=== PATIENT | male | born 1945 | race Caucasian/White ===

== ENCOUNTER → 2017-07-19 | Outpatient (CLI) | payer MEDICARE, OTHER ==
--- NOTE | 2017-07-19 17:38 | PFTRPT ---
Tech: Erich HENLEY RRT Age: 71 Sex: Male Race: Height: 66.00 Inches Weight: 180.00 Lbs BSA: 1.91 Diagnosis: Z79.899 PULMONARY FUNCTION REPORT ORDERING PROVIDER: Lewis Peck MD DATE OF SERVICE: 07/19/17 SPIROMETRY: Pre and post bronchodilator study of excellent technical quality. Marked difficulty with the required maneuvers is identified. The forced vital capacity is normal. The FEV1 is in proportion. The obstructive index is, therefore, normal. FLOW VOLUME LOOP: The expiratory limb of the flow volume loop suggests marked difficulty with the maneuver. LUNG VOLUMES: The total lung capacity is normal. The residual volume is in proportion. DIFFUSION CAPACITY: The diffusion capacity is minimally reduced, but is appropriate for alveolar volume. HEMOGLOBIN: No hemoglobin is available for correction. AIRWAY MECHANICS: Airways resistance and conductance are normal. IMPRESSION: Minimal diffusion capacity impairment; otherwise, normal study despite the above limitations. MTDD
== END ==
LOC: M CARPUL 12:47
PROVIDERS: ATTEND Internal Medicine Cardiovascular Disease
DX: Z51.81 Encounter for therapeutic drug level monitoring (principal); Z79.899 Other long term (current) drug therapy

== ENCOUNTER → 2017-10-10 | Outpatient (REF) | payer MEDICARE, OTHER ==
[2017-10-10 17:01] LABS: FREE T4 0.75 NG/DL (0.76-1.46)
== END ==
LOC: M LABDRAW1 11:18
PROVIDERS: ATTEND Internal Medicine Endocrinology, Diabetes & Metabolism
DX: E04.2 Nontoxic multinodular goiter (principal)

== ENCOUNTER → 2017-11-27 | Outpatient (CLI) | payer OTHER | LOC: M RAD 13:07 | DX: Z01.818 Encounter for other preprocedural examination (principal); N28.1 Cyst of kidney, acquired | CPT/HCPCS: 76775 ==

== ENCOUNTER → 2017-12-11 | Outpatient (REF) | payer MEDICARE, OTHER ==
[2017-12-11 19:43] LABS: FREE T4 1.52 NG/DL (0.76-1.46); THYROID STIMULATING HORMONE 0.013 uIU/ML (0.358-3.740)
== END ==
LOC: M LAB REF 18:23
DX: E04.2 Nontoxic multinodular goiter (principal)
CPT/HCPCS: 84443

== ENCOUNTER → 2018-01-25 | Outpatient (CLI) | payer MEDICARE, OTHER | LOC: M RAD 08:28 | DX: R91.8 Other nonspecific abnormal finding of lung field (principal) | CPT/HCPCS: 71250 ==

== ENCOUNTER 2018-02-14 10:59 | Day surgery (SDC) | payer MEDICARE, OTHER ==
[2018-02-14] MEDS: LR 1,000 ML IV (11:49)
[2018-02-14] MEDS ORDERED: fentaNYL 100 MCG/2 ML INJECTION (J3010) As Ordered (12:35)
[2018-02-14] MEDS ORDERED: MIDAZOLAM INJ 2 MG/2 ML VIAL (J2250) As Ordered (12:35)
[2018-02-14] MEDS ORDERED: dexameTHASONE 4 MG/ML 1ML VIAL (J1100) As Ordered (12:40)
[2018-02-14] MEDS ORDERED: LIDOCAINE 2% INJ 100 MG/5 ML SDV (FOR ANES.) As Ordered (12:42)
[2018-02-14] MEDS ORDERED: ROCURONIUM BROMIDE 50 MG/5 ML VIAL As Ordered (12:42)
[2018-02-14] MEDS: THROMBIN SOLN 5,000 UNITS VIAL As Ordered (13:08)
[2018-02-14] MEDS: CETACAINE SPRAY 5GM As Ordered (13:39)
[2018-02-14] MEDS: EPINEPHrine 1MG/10ML SYRINGE 1.5IN As Ordered (13:39)
[2018-02-14] MEDS ORDERED: ePHEDrine SULFATE 25 MG/5 ML(5MG/ML) SYRINGE As Ordered (15:04)
[2018-02-14] MEDS ORDERED: PHENYLephrine HCL 500 MCG/5 ML (100MCG/ML) SYRINGE (J2370) As Ordered (15:04)
[2018-02-14] MEDS ORDERED: NORCO, ANEXSIA 5/325MG TABLET (HYDROcodone/ACETAMINOPHEN) PO (15:30)
[2018-02-14] MEDS ORDERED: METOCLOPRAMIDE INJ 10MG/2ML VIAL (J2765) IV (15:30)
[2018-02-14] MEDS ORDERED: LR 1,000 ML IV (15:30)
[2018-02-14] MEDS ORDERED: fentaNYL 100 MCG/2 ML INJECTION (J3010) IV (15:30)
[2018-02-14] MEDS ORDERED: ONDANSETRON 4MG/2ML VIAL (J2405) IV (15:30)
[2018-02-14] MEDS ORDERED: LEVALBUTEROL 1.25 MG/0.5 ML CONCENTRATE NEB As Ordered (16:09)
[2018-02-14] MEDS ORDERED: ALBUTEROL SULFATE 2.5 MG/0.5 ML INH NEB SOLN As Ordered (16:12)
[2018-02-14] MEDS: ALBUTEROL SULFATE 2.5 MG/0.5 ML INH NEB SOLN INH (16:17)
== END 2018-02-14 17:52 | disposition home or self-care (01) ==
LOC: M SDC 10:59
DX: R91.1 Solitary pulmonary nodule (principal); I12.9 Hypertensive chronic kidney disease with stage 1 through stage 4 chronic kidney disease, or unspecified chronic kidney disease; I48.91 Unspecified atrial fibrillation; E78.5 Hyperlipidemia, unspecified; K21.9 Gastro-esophageal reflux disease without esophagitis; N18.4 Chronic kidney disease, stage 4 (severe); M10.9 Gout, unspecified; E03.9 Hypothyroidism, unspecified; Z79.02 Long term (current) use of antithrombotics/antiplatelets; Z79.899 Other long term (current) drug therapy
CPT/HCPCS: 31628

== ENCOUNTER → 2018-02-23 | Outpatient (REF) | payer MEDICARE, OTHER ==
[2018-02-23 12:24] LABS: FREE T4 1.72 NG/DL (0.76-1.46)
[2018-02-23 12:24] LABS: THYROID STIMULATING HORMONE 0.007 uIU/ML (0.358-3.740)
== END ==
LOC: M LABDRAW1 10:52
DX: Z01.812 Encounter for preprocedural laboratory examination (principal); E03.9 Hypothyroidism, unspecified; Z79.01 Long term (current) use of anticoagulants
CPT/HCPCS: 84443

== ENCOUNTER → 2018-02-23 | Outpatient (REF) | payer MEDICARE, OTHER ==
[2018-02-23 11:47] LABS: PLATELET COUNT, AUTOMATED 236 10^3/uL (150-450)
[2018-02-23 12:07] LABS: INR 1.23; PROTHROMBIN TIME 15.8 SECONDS (12.4-14.5)
== END ==
LOC: M LABDRAW1 10:53
DX: Z01.812 Encounter for preprocedural laboratory examination (principal); Z79.01 Long term (current) use of anticoagulants

== ENCOUNTER 2018-02-28 07:59 | Inpatient (IN) | payer MEDICARE, OTHER ==
[2018-02-28] MEDS ORDERED: LIDOCAINE 1% MDV 20ML VIAL As Ordered ×3 (08:38→12:50)
[2018-02-28] MEDS: HEPARIN SOD (PORCINE) 5000 UNITS/ML VIAL SC ×2 (09:00→21:00)
[2018-02-28] MEDS: DOCUSATE SODIUM 100 MG CAP PO ×2 (09:00→21:00)
[2018-02-28] MEDS: POTASSIUM CHLORIDE 10 MEQ SR TABLET PO ×2 (09:00→21:03)
[2018-02-28] MEDS ORDERED: MIDAZOLAM INJ 2 MG/2 ML VIAL (J2250) As Ordered ×3 (10:55→11:06)
[2018-02-28] MEDS ORDERED: NORCO, ANEXSIA 5/325MG TABLET (HYDROcodone/ACETAMINOPHEN) PO (11:30)
[2018-02-28] MEDS: KCL 20MEQ IN D5/NS 1000ML 1,000 ML IV (11:30)
[2018-02-28] MEDS ORDERED: LEVALBUTEROL 1.25 MG/0.5 ML CONCENTRATE NEB NEB (11:30)
[2018-02-28] MEDS ORDERED: ACETAMINOPHEN TAB 650MG DOSE (2X325MG) PO (11:30)
[2018-02-28] MEDS ORDERED: PERCOCET 5MG/325MG TAB PO ×2 (11:30)
[2018-02-28] MEDS ORDERED: ONDANSETRON 4MG/2ML VIAL (J2405) IV (11:30)
[2018-02-28] MEDS ORDERED: BISACODYL 10 MG SUPP PR (11:30)
[2018-02-28] MEDS: LEVALBUTEROL 1.25 MG/0.5 ML CONCENTRATE NEB NEB ×2 (14:00→20:04)
[2018-02-28] MEDS: ALLOPURINOL 100 MG TAB PO (16:31)
[2018-02-28] MEDS: CALCITRIOL 0.25 MCG CAP (S0169) PO (16:31)
[2018-02-28] MEDS: PANTOPRAZOLE 40MG TAB (PROTONIX) PO (16:32)
[2018-02-28] MEDS: MOM 30ML SUSPENSION UDC PO (16:32)
[2018-02-28] MEDS: diltiaZEM **CD** 180 MG CAP PO (16:34)
[2018-02-28 16:45] LABS: BASO # 0.1 10^3/uL (0.0-0.2); BASO % 0.5 % (0.0-1.0); EOS # 0.3 10^3/uL (0.0-0.50); EOS % 1.9 % (0.0-3.0); HEMATOCRIT 44.2 % (42.0-52.0); HEMOGLOBIN 15.1 g/dl (13.5-17.5); IMMATURE GRANULOCYTE % 0.3 % (0-3.0); LYMPH # 1.8 10^3/uL (1.5-4.5); LYMPH % 12.1 % (24.0-44.0); MEAN CORPUSCULAR HEMOGLOBIN 31.4 pg (27.0-33.0); MEAN CORPUSCULAR HGB CONC 34.2 g/dl (32.0-36.5); MEAN CORPUSCULAR VOLUME 91.9 fl (80.0-96.0); MONO # 1.1 10^3/uL (0.0-0.8); MONO % 7.5 % (0.0-5.0); NEUTROPHILS # 11.2 10^3/uL (1.8-7.7); NEUTROPHILS % 77.7 % (36.0-66.0); PLATELET COUNT, AUTOMATED 202 10^3/uL (150-450); RED BLOOD COUNT 4.81 10^6/uL (4.30-6.10); RED CELL DISTRIBUTION WIDTH 14.4 % (11.5-14.5); WHITE BLOOD COUNT 14.5 10^3/uL (4.0-10.0)
[2018-02-28 17:10] LABS: ANION GAP 6 MEQ/L (8-16); BLOOD UREA NITROGEN 47 MG/DL (7-18); CALCIUM LEVEL 8.5 MG/DL (8.8-10.2); CARBON DIOXIDE LEVEL 26 MEQ/L (21-32); CHLORIDE LEVEL 113 MEQ/L (98-107); CREATININE FOR GFR 2.87 MG/DL (0.70-1.30); GLOMERULAR FILTRATION RATE 23.2 (>42); GLUCOSE, FASTING 122 MG/DL (70-100); POTASSIUM SERUM 4.7 MEQ/L (3.5-5.1); SODIUM LEVEL 145 MEQ/L (136-145)
[2018-02-28] MEDS: SIMVASTATIN 20 MG TAB PO (21:02)
[2018-02-28] MEDS: FUROSEMIDE 40 MG TAB PO (21:02)
[2018-03-01] MEDS: LEVALBUTEROL 1.25 MG/0.5 ML CONCENTRATE NEB NEB ×3 (01:05→13:25)
[2018-03-01 04:29] LABS: BASO # 0.1 10^3/uL (0.0-0.2); BASO % 0.5 % (0.0-1.0); EOS # 0.4 10^3/uL (0.0-0.50); EOS % 4.2 % (0.0-3.0); HEMATOCRIT 40.9 % (42.0-52.0); HEMOGLOBIN 13.9 g/dl (13.5-17.5); IMMATURE GRANULOCYTE % 0.4 % (0-3.0); LYMPH # 1.9 10^3/uL (1.5-4.5); LYMPH % 18.2 % (24.0-44.0); MEAN CORPUSCULAR HEMOGLOBIN 31.2 pg (27.0-33.0); MEAN CORPUSCULAR VOLUME 91.7 fl (80.0-96.0); MONO # 1.1 10^3/uL (0.0-0.8); MONO % 10.6 % (0.0-5.0); NEUTROPHILS % 66.1 % (36.0-66.0); PLATELET COUNT, AUTOMATED 183 10^3/uL (150-450); RED BLOOD COUNT 4.46 10^6/uL (4.30-6.10); RED CELL DISTRIBUTION WIDTH 14.2 % (11.5-14.5); WHITE BLOOD COUNT 10.6 10^3/uL (4.0-10.0)
[2018-03-01 04:50] LABS: ANION GAP 6 MEQ/L (8-16); BLOOD UREA NITROGEN 47 MG/DL (7-18); CALCIUM LEVEL 8.3 MG/DL (8.8-10.2); CARBON DIOXIDE LEVEL 26 MEQ/L (21-32); CHLORIDE LEVEL 111 MEQ/L (98-107); CREATININE FOR GFR 2.88 MG/DL (0.70-1.30); GLOMERULAR FILTRATION RATE 23.1 (>42); GLUCOSE, FASTING 102 MG/DL (70-100); POTASSIUM SERUM 4.5 MEQ/L (3.5-5.1); SODIUM LEVEL 143 MEQ/L (136-145)
[2018-03-01] MEDS: LEVOTHYROXINE 112MCG TABLET (0.112MG) PO (06:32)
[2018-03-01] MEDS: DOCUSATE SODIUM 100 MG CAP PO (09:00)
[2018-03-01] MEDS: HEPARIN SOD (PORCINE) 5000 UNITS/ML VIAL SC (09:00)
[2018-03-01] MEDS: MOM 30ML SUSPENSION UDC PO (09:00)
[2018-03-01] MEDS: CALCITRIOL 0.25 MCG CAP (S0169) PO (09:49)
[2018-03-01] MEDS: diltiaZEM **CD** 180 MG CAP PO (09:50)
[2018-03-01] MEDS: ALLOPURINOL 100 MG TAB PO (09:50)
[2018-03-01] MEDS: POTASSIUM CHLORIDE 10 MEQ SR TABLET PO (09:50)
[2018-03-01] MEDS: PANTOPRAZOLE 40MG TAB (PROTONIX) PO (09:50)
== END 2018-03-01 14:22 | disposition home or self-care (01) | DRG 200 ==
LOC: M RADPRO 07:59 → M ICU 12:09
PROC: 0W9B30Z Drainage of Left Pleural Cavity with Drainage Device, Percutaneous Approach (ICD-10-PCS; principal; 2018-02-28)
PROC: 0B9G3ZX Drainage of Left Upper Lung Lobe, Percutaneous Approach, Diagnostic (ICD-10-PCS; 2018-02-28)
DX: J93.9 Pneumothorax, unspecified (principal); N18.4 Chronic kidney disease, stage 4 (severe); C34.12 Malignant neoplasm of upper lobe, left bronchus or lung; I48.91 Unspecified atrial fibrillation; R91.8 Other nonspecific abnormal finding of lung field; E03.9 Hypothyroidism, unspecified; M10.9 Gout, unspecified; I12.9 Hypertensive chronic kidney disease with stage 1 through stage 4 chronic kidney disease, or unspecified chronic kidney disease; E78.5 Hyperlipidemia, unspecified; Z86.718 Personal history of other venous thrombosis and embolism; Z79.01 Long term (current) use of anticoagulants; Z79.899 Other long term (current) drug therapy

== ENCOUNTER → 2018-03-06 | Outpatient (CLI) | payer MEDICARE, OTHER | LOC: M PLARAD 15:18 | DX: C34.12 Malignant neoplasm of upper lobe, left bronchus or lung (principal) | CPT/HCPCS: 78815 ==

== ENCOUNTER → 2018-03-08 | Outpatient (CLI) | payer OTHER | LOC: M SMT 08:14 | DX: R91.8 Other nonspecific abnormal finding of lung field (principal) | CPT/HCPCS: 71046 ==

== ENCOUNTER → 2018-03-09 | Outpatient (CLI) | payer MEDICARE, OTHER ==
[2018-03-09 11:55] LABS: ABG BASE EXCESS -0.1 (-2.0-2.0); ABG DEVICE ROOM AIR; ABG HCO3 23.7 MEQ/L (22.0-26.0); ABG O2 SATURATION 95.6 % (95.0-99.0); ABG PARTIAL PRESSURE CO2 36.1 mmHg (35.0-45.0); ABG PARTIAL PRESSURE O2 78.5 mmHg (75.0-100.0); ABG STANDARD HCO3 24.4 MEQ/L (22.0-26.0); ABG TOTAL CO2 24.8 MEQ/L (23.0-31.0); ABG pH (ARTERIAL) 7.435 UNITS (7.350-7.450)
[2018-03-09 12:37] LABS: HEMOGLOBIN 14.5 g/dl (13.5-17.5); MEAN CORPUSCULAR HEMOGLOBIN 30.9 pg (27.0-33.0); MEAN CORPUSCULAR HGB CONC 33.7 g/dl (32.0-36.5); MEAN CORPUSCULAR VOLUME 91.7 fl (80.0-96.0); PLATELET COUNT, AUTOMATED 216 10^3/uL (150-450); RED BLOOD COUNT 4.69 10^6/uL (4.30-6.10); RED CELL DISTRIBUTION WIDTH 14.1 % (11.5-14.5); WHITE BLOOD COUNT 7.3 10^3/uL (4.0-10.0)
[2018-03-09 12:44] LABS: APPEARANCE, URINE CLEAR (CLEAR); BACTERIA, URINE AUTO NEGATIVE (NEGATIVE); BILIRUBIN, URINE AUTO NEGATIVE (NEGATIVE); BLOOD, URINE BLOOD NEGATIVE (NEGATIVE); COLOR, URINE STRAW (YELLOW); GLUCOSE, URINE (UA) AUTO NEGATIVE (NEGATIVE); KETONE, URINE AUTO NEGATIVE (NEGATIVE); LEUKOCYTE ESTERASE, URINE AUTO NEGATIVE (NEGATIVE); NITRITE, URINE AUTO NEGATIVE (NEGATIVE); PROTEIN, URINE AUTO NEGATIVE (NEGATIVE); RBC, URINE AUTO 3 /HPF (0-3); SPECIFIC GRAVITY URINE AUTO 1.009 (1.002-1.035); SQUAMOUS EPITHELIAL CELL UR AU 0 /HPF (0-6); UROBILINOGEN, URINE AUTO 0.2 mg/dL (0.0-2.0); WBC, URINE AUTO 3 /HPF (0-3)
[2018-03-09 12:49] LABS: INR 1.14; PROTHROMBIN TIME 14.8 SECONDS (12.4-14.5)
[2018-03-09 12:50] LABS: PARTIAL THROMBOPLASTIN TIME 34.1 SECONDS (26.8-37.9)
[2018-03-09 13:28] LABS: ANION GAP 7 MEQ/L (8-16); BLOOD UREA NITROGEN 50 MG/DL (7-18); CALCIUM LEVEL 8.8 MG/DL (8.8-10.2); CARBON DIOXIDE LEVEL 28 MEQ/L (21-32); CHLORIDE LEVEL 107 MEQ/L (98-107); CREATININE FOR GFR 2.65 MG/DL (0.70-1.30); GLOMERULAR FILTRATION RATE 25.5 (>42); GLUCOSE, FASTING 93 MG/DL (70-100); POTASSIUM SERUM 4.6 MEQ/L (3.5-5.1); SODIUM LEVEL 142 MEQ/L (136-145)
== END ==
LOC: M ADMPAT 10:33
DX: C34.92 Malignant neoplasm of unspecified part of left bronchus or lung (principal)
CPT/HCPCS: 82803

== ENCOUNTER 2018-03-14 08:28 | Inpatient (IN) | payer MEDICARE, OTHER ==
[~2018-03-14 08:28] MED LIST: LIDOCAINE 2% INJ 100 MG/5 ML SDV (FOR ANES.) As Ordered; ONDANSETRON 4MG/2ML VIAL (J2405) As Ordered; PROPOFOL 200 MG/20 ML VIAL As Ordered; ROCURONIUM BROMIDE 50 MG/5 ML VIAL As Ordered; dexameTHASONE 4 MG/ML 1ML VIAL (J1100) As Ordered
[2018-03-14 09:05] LABS: POTASSIUM SERUM 4.7 MEQ/L (3.5-5.1)
[2018-03-14] MEDS ORDERED: fentaNYL 100 MCG/2 ML INJECTION (J3010) As Ordered ×2 (09:29→13:27)
[2018-03-14] MEDS ORDERED: MIDAZOLAM INJ 2 MG/2 ML VIAL (J2250) As Ordered ×2 (09:29→10:09)
[2018-03-14] MEDS: LR 1,000 ML IV ×2 (09:36→17:27)
[2018-03-14] MEDS: fentaNYL 100 MCG/2 ML INJECTION (J3010) IV ×2 (10:00→10:11)
[2018-03-14] MEDS: MIDAZOLAM INJ 2 MG/2 ML VIAL (J2250) IV ×2 (10:00→10:03)
[2018-03-14] MEDS ORDERED: fentaNYL 250 MCG/5 ML INJECTION (J3010) As Ordered (10:09)
[2018-03-14] MEDS: MUPIROCIN 2% OINT 22 GM TUBE TOP (10:55)
[2018-03-14] MEDS: CETACAINE SPRAY 5GM As Ordered (11:06)
[2018-03-14] MEDS ORDERED: WALLBOXKEY XX (11:30)
[2018-03-14] MEDS ORDERED: diphenhydrAMINE INJ 50MG/ML VIAL (J1200) IV (11:30)
[2018-03-14] MEDS ORDERED: ONDANSETRON 4MG/2ML VIAL (J2405) IV ×3 (11:30→15:00)
[2018-03-14] MEDS ORDERED: NALOXONE INJ 0.4 MG/1 ML VIAL (J2310) IV (11:30)
[2018-03-14] MEDS ORDERED: EPIDURAL/PCA KEYS XX (11:30)
[2018-03-14] MEDS ORDERED: METOCLOPRAMIDE INJ 10MG/2ML VIAL (J2765) IV ×2 (11:30→15:00)
[2018-03-14] MEDS ORDERED: ePHEDrine SULFATE 25 MG/5 ML(5MG/ML) SYRINGE As Ordered ×2 (13:02→13:21)
[2018-03-14] MEDS ORDERED: PHENYLephrine HCL 500 MCG/5 ML (100MCG/ML) SYRINGE (J2370) As Ordered (13:02)
[2018-03-14] MEDS ORDERED: GLYCOPYRROLATE INJ 0.2 MG/ML 2 ML VIAL As Ordered (13:22)
[2018-03-14] MEDS ORDERED: BUPIVACAINE HCL 0.25% 30 ML VIAL As Ordered (13:27)
[2018-03-14] MEDS: BUPIVACAINE LIPOSOME/PF 1.3% 20 ML VIAL (13.3MG/ML)(EXPAREL) As Ordered ×2 (14:16→14:23)
[2018-03-14] MEDS: BUPIVACAINE HCL 0.5% 30 ML VIAL As Ordered (14:16)
[2018-03-14] MEDS ORDERED: BISACODYL 10 MG SUPP PR (14:45)
[2018-03-14] MEDS ORDERED: NORCO, ANEXSIA 5/325MG TABLET (HYDROcodone/ACETAMINOPHEN) PO (14:45)
[2018-03-14] MEDS ORDERED: LEVALBUTEROL 1.25 MG/0.5 ML CONCENTRATE NEB NEB (14:45)
[2018-03-14] MEDS ORDERED: fentaNYL 100 MCG/2 ML INJECTION (J3010) IV (15:00)
[2018-03-14] MEDS ORDERED: PERCOCET 5MG/325MG TAB PO (15:00)
[2018-03-14] MEDS ORDERED: MEPERIDINE INJ 25 MG/ML VIAL (J2175) IV (15:00)
[2018-03-14 15:25] LABS: ABG BASE EXCESS -5.2 (-2.0-2.0); ABG HCO3 19.7 MEQ/L (22.0-26.0); ABG O2 SATURATION 96.4 % (95.0-99.0); ABG PARTIAL PRESSURE CO2 36.6 mmHg (35.0-45.0); ABG PARTIAL PRESSURE O2 89.2 mmHg (75.0-100.0); ABG STANDARD HCO3 20.2 MEQ/L (22.0-26.0); ABG TOTAL CO2 20.8 MEQ/L (23.0-31.0); ABG pH (ARTERIAL) 7.349 UNITS (7.350-7.450)
[2018-03-14 15:29] LABS: BASO % 0.3 % (0.0-1.0); EOS % 0.1 % (0.0-3.0); HEMATOCRIT 44.1 % (42.0-52.0); HEMOGLOBIN 14.6 g/dl (13.5-17.5); IMMATURE GRANULOCYTE % 0.4 % (0-3.0); LYMPH # 0.7 10^3/uL (1.5-4.5); LYMPH % 5.4 % (24.0-44.0); MEAN CORPUSCULAR HEMOGLOBIN 30.8 pg (27.0-33.0); MEAN CORPUSCULAR HGB CONC 33.1 g/dl (32.0-36.5); MONO # 0.3 10^3/uL (0.0-0.8); MONO % 2.1 % (0.0-5.0); NEUTROPHILS # 12.3 10^3/uL (1.8-7.7); NEUTROPHILS % 91.7 % (36.0-66.0); PLATELET COUNT, AUTOMATED 260 10^3/uL (150-450); RED BLOOD COUNT 4.74 10^6/uL (4.30-6.10); RED CELL DISTRIBUTION WIDTH 14.1 % (11.5-14.5); WHITE BLOOD COUNT 13.4 10^3/uL (4.0-10.0)
[2018-03-14 15:42] LABS: ANION GAP 7 MEQ/L (8-16); BLOOD UREA NITROGEN 46 MG/DL (7-18); CALCIUM LEVEL 8.4 MG/DL (8.8-10.2); CARBON DIOXIDE LEVEL 26 MEQ/L (21-32); CHLORIDE LEVEL 111 MEQ/L (98-107); GLOMERULAR FILTRATION RATE 23.9 (>42); GLUCOSE, FASTING 155 MG/DL (70-100); POTASSIUM SERUM 4.1 MEQ/L (3.5-5.1); SODIUM LEVEL 144 MEQ/L (136-145)
[2018-03-14] MEDS ORDERED: PHENYLEPHRINE INJ 10MG/ML VIAL (J2370) As Ordered (16:05)
[2018-03-14] MEDS: PHENYLEPHRINE INJ 10MG/ML VIAL (J2370) XX (16:29)
[2018-03-14] MEDS: MOM 30ML SUSPENSION UDC PO (17:27)
[2018-03-14] MEDS: FENTANYL/BUPIVACAINE/NACL BAG 250 ML EPIDURAL (17:28)
[2018-03-14] MEDS: diltiaZEM **CD** 180 MG CAP PO (17:31)
[2018-03-14] MEDS: PANTOPRAZOLE 40MG TAB (PROTONIX) PO (17:44)
[2018-03-14] MEDS: ALLOPURINOL 100 MG TAB PO (17:44)
[2018-03-14] MEDS: KCL 20MEQ IN D5/NS 1000ML 1,000 ML IV (17:45)
[2018-03-14] MEDS: CALCITRIOL 0.25 MCG CAP (S0169) PO (17:58)
[2018-03-14] MEDS: ceFAZolin SOD 1 GM in D5W MINI-BAG PLUS 50 ML IV (19:50)
[2018-03-14] MEDS: KCL 20MEQ IN D5/0.45NS 1000ML 1,000 ML IV (19:50)
[2018-03-14] MEDS: LEVALBUTEROL 1.25 MG/0.5 ML CONCENTRATE NEB NEB (20:06)
[2018-03-14] MEDS ORDERED: FUROSEMIDE 40 MG TAB PO (21:00)
[2018-03-14] MEDS ORDERED: POTASSIUM CHLORIDE 10 MEQ SR TABLET PO (21:00)
[2018-03-14] MEDS: DOCUSATE SODIUM 100 MG CAP PO (21:19)
[2018-03-14] MEDS: SIMVASTATIN 20 MG TAB PO (21:19)
[2018-03-14] MEDS: HEPARIN SOD (PORCINE) 5000 UNITS/ML VIAL SC (21:20)
[2018-03-14] MEDS: NS 250 ML IV (21:22)
[2018-03-15] MEDS: LEVALBUTEROL 1.25 MG/0.5 ML CONCENTRATE NEB NEB ×4 (02:45→20:42)
[2018-03-15] MEDS: PHENYLEPHRINE HCL INJ 50 MG in D5W 500 ML IV (03:50)
[2018-03-15] MEDS: ceFAZolin SOD 1 GM in D5W MINI-BAG PLUS 50 ML IV ×2 (04:41→13:40)
[2018-03-15 05:06] LABS: BASO % 0.1 % (0.0-1.0); HEMATOCRIT 40.4 % (42.0-52.0); HEMOGLOBIN 13.6 g/dl (13.5-17.5); IMMATURE GRANULOCYTE % 0.3 % (0-3.0); LYMPH # 0.8 10^3/uL (1.5-4.5); LYMPH % 5.9 % (24.0-44.0); MEAN CORPUSCULAR HEMOGLOBIN 30.7 pg (27.0-33.0); MEAN CORPUSCULAR HGB CONC 33.7 g/dl (32.0-36.5); MEAN CORPUSCULAR VOLUME 91.2 fl (80.0-96.0); MONO # 1.7 10^3/uL (0.0-0.8); MONO % 13.2 % (0.0-5.0); NEUTROPHILS # 10.3 10^3/uL (1.8-7.7); NEUTROPHILS % 80.5 % (36.0-66.0); PLATELET COUNT, AUTOMATED 261 10^3/uL (150-450); RED BLOOD COUNT 4.43 10^6/uL (4.30-6.10); RED CELL DISTRIBUTION WIDTH 14.4 % (11.5-14.5); WHITE BLOOD COUNT 12.8 10^3/uL (4.0-10.0)
[2018-03-15 05:29] LABS: ANION GAP 6 MEQ/L (8-16); BLOOD UREA NITROGEN 48 MG/DL (7-18); CALCIUM LEVEL 8.4 MG/DL (8.8-10.2); CARBON DIOXIDE LEVEL 28 MEQ/L (21-32); CHLORIDE LEVEL 108 MEQ/L (98-107); CREATININE FOR GFR 2.94 MG/DL (0.70-1.30); GLOMERULAR FILTRATION RATE 22.6 (>42); GLUCOSE, FASTING 187 MG/DL (70-100); PHOSPHORUS LEVEL 2.7 MG/DL (2.5-4.9); POTASSIUM SERUM 4.4 MEQ/L (3.5-5.1); SODIUM LEVEL 142 MEQ/L (136-145)
[2018-03-15] MEDS: LEVOTHYROXINE 112MCG TABLET (0.112MG) PO (06:06)
[2018-03-15 09:17] LABS: ABG BASE EXCESS -5.6 (-2.0-2.0); ABG HCO3 18.1 MEQ/L (22.0-26.0); ABG O2 SATURATION 97.4 % (95.0-99.0); ABG PARTIAL PRESSURE CO2 30.3 mmHg (35.0-45.0); ABG PARTIAL PRESSURE O2 94.4 mmHg (75.0-100.0); ABG STANDARD HCO3 19.9 MEQ/L (22.0-26.0); ABG pH (ARTERIAL) 7.393 UNITS (7.350-7.450)
[2018-03-15] MEDS: diltiaZEM **CD** 180 MG CAP PO (09:23)
[2018-03-15] MEDS: KCL 20MEQ IN D5/0.45NS 1000ML 1,000 ML IV (09:33)
[2018-03-15] MEDS: DOCUSATE SODIUM 100 MG CAP PO ×2 (09:49→21:02)
[2018-03-15] MEDS: PANTOPRAZOLE 40MG TAB (PROTONIX) PO (09:49)
[2018-03-15] MEDS: MOM 30ML SUSPENSION UDC PO (09:49)
[2018-03-15] MEDS: ALLOPURINOL 100 MG TAB PO (09:49)
[2018-03-15] MEDS: CALCITRIOL 0.25 MCG CAP (S0169) PO (09:49)
[2018-03-15] MEDS: HEPARIN SOD (PORCINE) 5000 UNITS/ML VIAL SC ×2 (09:50→21:02)
[2018-03-15] MEDS: NS 500 ML IV (11:07)
[2018-03-15] MEDS: NS 0.45% 1,000 ML IV (11:59)
[2018-03-15] MEDS: FENTANYL/BUPIVACAINE/NACL BAG 250 ML EPIDURAL (16:57)
[2018-03-15] MEDS: SIMVASTATIN 20 MG TAB PO (21:02)
[2018-03-16] MEDS: ceFAZolin SOD 1 GM in D5W MINI-BAG PLUS 50 ML IV ×2 (00:18→11:14)
[2018-03-16] MEDS: NS 0.45% 1,000 ML IV (00:21)
[2018-03-16] MEDS: LEVALBUTEROL 1.25 MG/0.5 ML CONCENTRATE NEB NEB ×4 (02:21→19:55)
[2018-03-16] MEDS: DIGOXIN INJ 0.5 MG/2 ML AMP (J1160) IV ×2 (03:28→06:11)
[2018-03-16] MEDS: diltiaZEM **CD** 180 MG CAP PO (03:44)
[2018-03-16 05:00] LABS: BASO # 0.1 10^3/uL (0.0-0.2); BASO % 0.4 % (0.0-1.0); EOS % 0.2 % (0.0-3.0); HEMATOCRIT 36.3 % (42.0-52.0); HEMOGLOBIN 12.3 g/dl (13.5-17.5); IMMATURE GRANULOCYTE % 0.4 % (0-3.0); LYMPH # 1.3 10^3/uL (1.5-4.5); LYMPH % 10.5 % (24.0-44.0); MEAN CORPUSCULAR HEMOGLOBIN 30.9 pg (27.0-33.0); MEAN CORPUSCULAR HGB CONC 33.9 g/dl (32.0-36.5); MEAN CORPUSCULAR VOLUME 91.2 fl (80.0-96.0); MONO # 1.6 10^3/uL (0.0-0.8); MONO % 13.5 % (0.0-5.0); NEUTROPHILS # 8.9 10^3/uL (1.8-7.7); PLATELET COUNT, AUTOMATED 182 10^3/uL (150-450); RED BLOOD COUNT 3.98 10^6/uL (4.30-6.10); RED CELL DISTRIBUTION WIDTH 14.4 % (11.5-14.5); WHITE BLOOD COUNT 11.9 10^3/uL (4.0-10.0)
[2018-03-16 05:36] LABS: ANION GAP 6 MEQ/L (8-16); BLOOD UREA NITROGEN 40 MG/DL (7-18); CALCIUM LEVEL 7.5 MG/DL (8.8-10.2); CARBON DIOXIDE LEVEL 24 MEQ/L (21-32); CHLORIDE LEVEL 110 MEQ/L (98-107); CREATININE FOR GFR 2.42 MG/DL (0.70-1.30); GLOMERULAR FILTRATION RATE 28.3 (>42); GLUCOSE, FASTING 123 MG/DL (70-100); POTASSIUM SERUM 4.3 MEQ/L (3.5-5.1); SODIUM LEVEL 140 MEQ/L (136-145)
[2018-03-16] MEDS: LEVOTHYROXINE 112MCG TABLET (0.112MG) PO (06:11)
[2018-03-16] MEDS: MOM 30ML SUSPENSION UDC PO (08:16)
[2018-03-16] MEDS: ALLOPURINOL 100 MG TAB PO (08:17)
[2018-03-16] MEDS: DOCUSATE SODIUM 100 MG CAP PO ×2 (08:17→20:45)
[2018-03-16] MEDS: PANTOPRAZOLE 40MG TAB (PROTONIX) PO (08:17)
[2018-03-16] MEDS: HEPARIN SOD (PORCINE) 5000 UNITS/ML VIAL SC ×2 (08:17→20:45)
[2018-03-16] MEDS: CALCITRIOL 0.25 MCG CAP (S0169) PO (08:17)
[2018-03-16] MEDS ORDERED: diltiaZEM **CD** 180 MG CAP PO (09:00)
[2018-03-16] MEDS ORDERED: AMIODARONE 150MG/3ML INJ (J0282) IVP (10:36)
[2018-03-16] MEDS: AMIODARONE HCL 150 MG in APPROPRIATE DILUENT 1 EA IV ×2 (11:14→14:21)
[2018-03-16 11:57] LABS: DIGOXIN LEVEL 1.5 NG/ML (0.5-2.0)
[2018-03-16 12:16] LABS: MAGNESIUM LEVEL 2.5 MG/DL (1.8-2.4)
[2018-03-16] MEDS: FUROSEMIDE 40 MG/4 ML VIAL (J1940) IV (14:13)
[2018-03-16] MEDS: PHENYLEPHRINE HCL INJ 50 MG in D5W 500 ML IV ×2 (16:44→19:00)
[2018-03-16] MEDS: FENTANYL/BUPIVACAINE/NACL BAG 250 ML EPIDURAL (16:46)
[2018-03-16] MEDS: ACETAMINOPHEN TAB 650MG DOSE (2X325MG) PO (20:45)
[2018-03-17] MEDS: LEVALBUTEROL 1.25 MG/0.5 ML CONCENTRATE NEB NEB ×4 (01:44→19:58)
[2018-03-17 04:38] LABS: BASO # 0.1 10^3/uL (0.0-0.2); BASO % 0.4 % (0.0-1.0); EOS # 0.2 10^3/uL (0.0-0.50); EOS % 1.2 % (0.0-3.0); HEMATOCRIT 37.6 % (42.0-52.0); HEMOGLOBIN 12.7 g/dl (13.5-17.5); IMMATURE GRANULOCYTE % 0.6 % (0-3.0); LYMPH # 1.6 10^3/uL (1.5-4.5); LYMPH % 12.8 % (24.0-44.0); MEAN CORPUSCULAR HEMOGLOBIN 30.9 pg (27.0-33.0); MEAN CORPUSCULAR HGB CONC 33.8 g/dl (32.0-36.5); MEAN CORPUSCULAR VOLUME 91.5 fl (80.0-96.0); MONO # 1.6 10^3/uL (0.0-0.8); MONO % 12.9 % (0.0-5.0); NEUTROPHILS % 72.1 % (36.0-66.0); PLATELET COUNT, AUTOMATED 196 10^3/uL (150-450); RED BLOOD COUNT 4.11 10^6/uL (4.30-6.10); RED CELL DISTRIBUTION WIDTH 14.4 % (11.5-14.5); WHITE BLOOD COUNT 12.5 10^3/uL (4.0-10.0)
[2018-03-17] MEDS ORDERED: ceFAZolin 1GM INJ (J0690 PER 500MG) As Ordered (04:46)
[2018-03-17] MEDS: ceFAZolin SOD 1 GM in D5W MINI-BAG PLUS 50 ML IV (04:50)
[2018-03-17 05:13] LABS: ANION GAP 6 MEQ/L (8-16); BLOOD UREA NITROGEN 38 MG/DL (7-18); CALCIUM LEVEL 7.8 MG/DL (8.8-10.2); CARBON DIOXIDE LEVEL 26 MEQ/L (21-32); CHLORIDE LEVEL 109 MEQ/L (98-107); CREATININE FOR GFR 2.57 MG/DL (0.70-1.30); DIGOXIN LEVEL 1.3 NG/ML (0.5-2.0); GLOMERULAR FILTRATION RATE 26.4 (>42); GLUCOSE, FASTING 114 MG/DL (70-100); POTASSIUM SERUM 4.5 MEQ/L (3.5-5.1); SODIUM LEVEL 141 MEQ/L (136-145)
[2018-03-17] MEDS: LEVOTHYROXINE 112MCG TABLET (0.112MG) PO (06:55)
[2018-03-17] MEDS: MOM 30ML SUSPENSION UDC PO (09:00)
[2018-03-17] MEDS ORDERED: diltiaZEM **CD** 180 MG CAP PO (09:00)
[2018-03-17] MEDS: FUROSEMIDE 40 MG/4 ML VIAL (J1940) IV (09:24)
[2018-03-17] MEDS: HEPARIN SOD (PORCINE) 5000 UNITS/ML VIAL SC ×2 (09:35→20:05)
[2018-03-17] MEDS: diltiaZEM **CD** 180 MG CAP PO (09:37)
[2018-03-17] MEDS: DOCUSATE SODIUM 100 MG CAP PO ×2 (09:37→20:04)
[2018-03-17] MEDS: PANTOPRAZOLE 40MG TAB (PROTONIX) PO (09:37)
[2018-03-17] MEDS: ATORVASTATIN 20 MG TAB PO ×2 (09:37→09:38)
[2018-03-17] MEDS: ALLOPURINOL 100 MG TAB PO (09:38)
[2018-03-17] MEDS: PERCOCET 5MG/325MG TAB PO ×2 (09:38→17:10)
[2018-03-17] MEDS: CALCITRIOL 0.25 MCG CAP (S0169) PO (09:38)
[2018-03-17] MEDS: APIXABAN 2.5 MG TAB (ELIQUIS) PO (20:04)
[2018-03-18] MEDS: LEVALBUTEROL 1.25 MG/0.5 ML CONCENTRATE NEB NEB ×4 (01:45→20:20)
[2018-03-18 04:43] LABS: BASO % 0.3 % (0.0-1.0); EOS # 0.3 10^3/uL (0.0-0.50); EOS % 3.1 % (0.0-3.0); HEMATOCRIT 36.1 % (42.0-52.0); IMMATURE GRANULOCYTE % 0.5 % (0-3.0); LYMPH # 1.7 10^3/uL (1.5-4.5); LYMPH % 15.3 % (24.0-44.0); MEAN CORPUSCULAR HEMOGLOBIN 30.2 pg (27.0-33.0); MEAN CORPUSCULAR HGB CONC 33.2 g/dl (32.0-36.5); MEAN CORPUSCULAR VOLUME 90.7 fl (80.0-96.0); MONO # 1.4 10^3/uL (0.0-0.8); MONO % 12.8 % (0.0-5.0); NEUTROPHILS # 7.4 10^3/uL (1.8-7.7); PLATELET COUNT, AUTOMATED 187 10^3/uL (150-450); RED BLOOD COUNT 3.98 10^6/uL (4.30-6.10); RED CELL DISTRIBUTION WIDTH 14.1 % (11.5-14.5); WHITE BLOOD COUNT 10.8 10^3/uL (4.0-10.0)
[2018-03-18 04:54] LABS: ANION GAP 8 MEQ/L (8-16); BLOOD UREA NITROGEN 42 MG/DL (7-18); CALCIUM LEVEL 7.9 MG/DL (8.8-10.2); CARBON DIOXIDE LEVEL 25 MEQ/L (21-32); CHLORIDE LEVEL 107 MEQ/L (98-107); CREATININE FOR GFR 2.81 MG/DL (0.70-1.30); GLOMERULAR FILTRATION RATE 23.8 (>42); GLUCOSE, FASTING 128 MG/DL (70-100); SODIUM LEVEL 140 MEQ/L (136-145)
[2018-03-18] MEDS: LEVOTHYROXINE 112MCG TABLET (0.112MG) PO (06:23)
[2018-03-18] MEDS: HEPARIN SOD (PORCINE) 5000 UNITS/ML VIAL SC ×2 (08:45→20:26)
[2018-03-18] MEDS: CALCITRIOL 0.25 MCG CAP (S0169) PO (08:45)
[2018-03-18] MEDS: DOCUSATE SODIUM 100 MG CAP PO ×2 (08:46→20:26)
[2018-03-18] MEDS: ATORVASTATIN 20 MG TAB PO (08:46)
[2018-03-18] MEDS: diltiaZEM **CD** 180 MG CAP PO (08:46)
[2018-03-18] MEDS: ALLOPURINOL 100 MG TAB PO (08:46)
[2018-03-18] MEDS: PANTOPRAZOLE 40MG TAB (PROTONIX) PO (08:46)
[2018-03-18] MEDS: APIXABAN 2.5 MG TAB (ELIQUIS) PO ×2 (08:46→20:27)
[2018-03-18] MEDS: PERCOCET 5MG/325MG TAB PO ×2 (08:47→20:27)
[2018-03-18] MEDS: MOM 30ML SUSPENSION UDC PO (08:47)
[2018-03-18] MEDS: FUROSEMIDE 40 MG/4 ML VIAL (J1940) IV (11:13)
[2018-03-19] MEDS: LEVALBUTEROL 1.25 MG/0.5 ML CONCENTRATE NEB NEB ×2 (03:12→07:52)
[2018-03-19 04:44] LABS: BASO # 0.1 10^3/uL (0.0-0.2); BASO % 0.5 % (0.0-1.0); EOS # 0.5 10^3/uL (0.0-0.50); EOS % 4.2 % (0.0-3.0); HEMATOCRIT 37.7 % (42.0-52.0); HEMOGLOBIN 12.8 g/dl (13.5-17.5); IMMATURE GRANULOCYTE % 0.5 % (0-3.0); LYMPH # 1.4 10^3/uL (1.5-4.5); LYMPH % 12.7 % (24.0-44.0); MEAN CORPUSCULAR HEMOGLOBIN 30.6 pg (27.0-33.0); MEAN CORPUSCULAR VOLUME 90.2 fl (80.0-96.0); MONO # 1.3 10^3/uL (0.0-0.8); MONO % 11.7 % (0.0-5.0); NEUTROPHILS # 7.7 10^3/uL (1.8-7.7); NEUTROPHILS % 70.4 % (36.0-66.0); PLATELET COUNT, AUTOMATED 236 10^3/uL (150-450); RED BLOOD COUNT 4.18 10^6/uL (4.30-6.10)
[2018-03-19 04:58] LABS: ALBUMIN 2.2 GM/DL (3.2-5.2); ANION GAP 7 MEQ/L (8-16); BLOOD UREA NITROGEN 45 MG/DL (7-18); CALCIUM LEVEL 8.1 MG/DL (8.8-10.2); CARBON DIOXIDE LEVEL 27 MEQ/L (21-32); CHLORIDE LEVEL 104 MEQ/L (98-107); CREATININE FOR GFR 3.01 MG/DL (0.70-1.30); GLUCOSE, FASTING 133 MG/DL (70-100); SODIUM LEVEL 138 MEQ/L (136-145)
[2018-03-19] MEDS: LEVOTHYROXINE 112MCG TABLET (0.112MG) PO (06:28)
[2018-03-19] MEDS: HEPARIN SOD (PORCINE) 5000 UNITS/ML VIAL SC (08:26)
[2018-03-19] MEDS: CALCITRIOL 0.25 MCG CAP (S0169) PO (08:26)
[2018-03-19] MEDS: PANTOPRAZOLE 40MG TAB (PROTONIX) PO (08:26)
[2018-03-19] MEDS: ALLOPURINOL 100 MG TAB PO (08:26)
[2018-03-19] MEDS: MOM 30ML SUSPENSION UDC PO (08:27)
[2018-03-19] MEDS: DOCUSATE SODIUM 100 MG CAP PO (08:27)
[2018-03-19] MEDS: diltiaZEM **CD** 180 MG CAP PO (08:27)
[2018-03-19] MEDS: ATORVASTATIN 20 MG TAB PO (08:27)
[2018-03-19] MEDS: APIXABAN 2.5 MG TAB (ELIQUIS) PO (09:25)
== END 2018-03-19 10:30 | disposition home or self-care (01) | DRG 164 ==
LOC: M OR 08:28 → M ICU 17:14
PROVIDERS: Thoracic Surgery (Cardiothoracic Vascular Surgery)
PROC: 0BTG0ZZ Resection of Left Upper Lung Lobe, Open Approach (ICD-10-PCS; principal; 2018-03-14 10:05)
PROC: 07B70ZX Excision of Thorax Lymphatic, Open Approach, Diagnostic (ICD-10-PCS; 2018-03-14 10:05)
DX: C34.12 Malignant neoplasm of upper lobe, left bronchus or lung (principal); N18.4 Chronic kidney disease, stage 4 (severe); N25.81 Secondary hyperparathyroidism of renal origin; J93.82 Other air leak; I48.91 Unspecified atrial fibrillation; I95.81 Postprocedural hypotension; I12.9 Hypertensive chronic kidney disease with stage 1 through stage 4 chronic kidney disease, or unspecified chronic kidney disease; E03.9 Hypothyroidism, unspecified; E78.00 Pure hypercholesterolemia, unspecified; M1A.30X0 Chronic gout due to renal impairment, unspecified site, without tophus (tophi); Z86.718 Personal history of other venous thrombosis and embolism; Z79.01 Long term (current) use of anticoagulants; Z79.899 Other long term (current) drug therapy

== ENCOUNTER → 2018-03-26 | Outpatient (CLI) | payer MEDICARE, OTHER | LOC: M SMT 08:28 | DX: C34.12 Malignant neoplasm of upper lobe, left bronchus or lung (principal) | CPT/HCPCS: 71046 ==

== ENCOUNTER → 2018-04-10 | Outpatient (REF) | payer MEDICARE, OTHER ==
[2018-04-10 15:47] LABS: INR 1.21; PROTHROMBIN TIME 15.5 SECONDS (12.4-14.5)
[2018-04-10 15:48] LABS: PARTIAL THROMBOPLASTIN TIME 29.7 SECONDS (26.8-37.9)
== END ==
LOC: M LAB REF 15:22
DX: C34.12 Malignant neoplasm of upper lobe, left bronchus or lung (principal); Z79.01 Long term (current) use of anticoagulants
CPT/HCPCS: 85610

== ENCOUNTER → 2018-04-13 | Outpatient (CLI) | payer MEDICARE, OTHER ==
[~2018-04-13] MED LIST changes: +LIDOCAINE 1% MDV 20ML VIAL As Ordered; -LIDOCAINE 2% INJ 100 MG/5 ML SDV (FOR ANES.) As Ordered; -ONDANSETRON 4MG/2ML VIAL (J2405) As Ordered; -PROPOFOL 200 MG/20 ML VIAL As Ordered; -ROCURONIUM BROMIDE 50 MG/5 ML VIAL As Ordered; -dexameTHASONE 4 MG/ML 1ML VIAL (J1100) As Ordered
== END ==
LOC: M RADPRO 12:05
DX: C34.90 Malignant neoplasm of unspecified part of unspecified bronchus or lung (principal); Z79.899 Other long term (current) drug therapy; Z79.01 Long term (current) use of anticoagulants; Z98.890 Other specified postprocedural states
CPT/HCPCS: 32405

== ENCOUNTER → 2018-04-16 | Outpatient (CLI) | payer MEDICARE, OTHER | LOC: M SMT 09:06 | DX: C34.12 Malignant neoplasm of upper lobe, left bronchus or lung (principal) | CPT/HCPCS: 71046 ==

== ENCOUNTER → 2018-05-25 | Outpatient (REF) | payer MEDICARE, OTHER ==
[2018-05-25 12:25] LABS: FREE T4 1.11 NG/DL (0.76-1.46); THYROID STIMULATING HORMONE 0.026 uIU/ML (0.358-3.740)
== END ==
LOC: M LABDRAW1 11:37
DX: E03.9 Hypothyroidism, unspecified (principal)
CPT/HCPCS: 84443

== ENCOUNTER 2018-09-20 15:17 | Emergency (ER) | payer MEDICARE, OTHER | END 2018-09-20 17:20 | disposition home or self-care (01) | LOC: M ED 15:17 | DX: J06.9 Acute upper respiratory infection, unspecified (principal); N18.4 Chronic kidney disease, stage 4 (severe); Z95.818 Presence of other cardiac implants and grafts; Z90.2 Acquired absence of lung [part of]; Z79.01 Long term (current) use of anticoagulants; Z79.899 Other long term (current) drug therapy | CPT/HCPCS: 71046 ==

== ENCOUNTER → 2018-09-25 | Outpatient (CLI) | payer MEDICARE, OTHER ==
[2018-09-25 18:36] LABS: FREE T4 1.27 NG/DL (0.76-1.46); THYROID STIMULATING HORMONE 0.012 uIU/ML (0.358-3.740)
== END ==
LOC: M LAB 17:08
DX: E03.9 Hypothyroidism, unspecified (principal)
CPT/HCPCS: 84443

== ENCOUNTER → 2018-10-01 | Outpatient (CLI) | payer MEDICARE, OTHER | LOC: M RAD 10:23 | DX: R91.8 Other nonspecific abnormal finding of lung field (principal); Z90.2 Acquired absence of lung [part of] | CPT/HCPCS: 71250 ==

== ENCOUNTER → 2018-11-23 | Outpatient (REF) | payer MEDICARE, OTHER ==
[~2018-11-23] MED LIST changes: +ALLO100T PO; +DILT120C82 PO; +DILT180C43 PO; +DILT300C43 PO; +ELIQ2.5T PO; +FURO40TA2 PO; +K-TA10TA2 PO; +LEVO100T5 PO; +LEVO112T2 PO; -LIDOCAINE 1% MDV 20ML VIAL As Ordered; +PERCOCET PO; +PROAAER10 INH; +ROCA0.25 PO; +SIMV40TA2 PO
[2018-11-23 14:31] LABS: FREE T4 1.35 NG/DL (0.76-1.46); THYROID STIMULATING HORMONE 0.016 uIU/ML (0.358-3.740)
== END ==
LOC: M LABDRAW1 13:51
PROVIDERS: ATTEND Nurse Practitioner Family
DX: E03.9 Hypothyroidism, unspecified (principal)

== ENCOUNTER → 2019-02-05 | Outpatient (CLI) | payer MEDICARE, OTHER ==
[~2019-02-05] MED LIST changes: -DILT120C82 PO; +DILT1CAP PO
[2019-02-05 20:32] LABS: FREE T4 1.19 NG/DL (0.76-1.46); THYROID STIMULATING HORMONE 0.143 uIU/ML (0.358-3.740)
== END ==
LOC: M LRY 16:46
PROVIDERS: ATTEND Internal Medicine Endocrinology, Diabetes & Metabolism
DX: E03.9 Hypothyroidism, unspecified (principal)

== ENCOUNTER → 2019-04-15 | Outpatient (CLI) | payer MEDICARE, OTHER ==
--- NOTE | 2019-04-15 14:54 | REP ---
CT CHEST WITHOUT IV CONTRAST: CT chest performed without IV contrast and compared to prior study of 10/01/2018. There is no change since that prior exam. Scattered fibrotic changes are again seen in both lungs. No new suspicious nodular opacity is seen in either lung. A small bulla is seen in the right lung base. Enlarged left lobe of thyroid is again seen, unchanged. No new axillary or mediastinal adenopathy is seen. There is atherosclerotic calcification of the thoracic aorta without aneurysm. Heart does not appear to be significantly enlarged. There is no pleural or pericardial effusion. Calcified granuloma is seen in the right lobe of the liver. Multiple diverticula are seen in the upper colon. No adrenal nodule is seen. There are degenerative changes of the spine. IMPRESSION: Stable chronic findings as discussed above. No new nodule or adenopathy or other acute finding. Electronically Signed by Elio Sanchez MD 04/16/2019 12:37 P
== END ==
LOC: M RAD 13:45
PROVIDERS: ATTEND Internal Medicine Pulmonary Disease
DX: R91.8 Other nonspecific abnormal finding of lung field (principal)

== ENCOUNTER → 2019-07-05 | Outpatient (CLI) | payer MEDICARE, OTHER ==
[~2019-07-05] MED LIST changes: -SIMV40TA2 PO; +SIMV40TA20 PO
[2019-07-05 17:07] LABS: FREE T4 1.28 NG/DL (0.76-1.46); THYROID STIMULATING HORMONE 0.036 uIU/ML (0.358-3.740)
== END ==
LOC: M LRY 10:37
PROVIDERS: ATTEND Nurse Practitioner Family
DX: E03.9 Hypothyroidism, unspecified (principal)

== ENCOUNTER → 2019-11-15 | Outpatient (CLI) | payer MEDICARE, OTHER ==
[2019-11-15 14:03] LABS: FREE T4 0.94 NG/DL (0.76-1.46); THYROID STIMULATING HORMONE 0.913 uIU/ML (0.358-3.740)
== END ==
LOC: M LRY 10:22
PROVIDERS: ATTEND Nurse Practitioner Family
DX: E03.9 Hypothyroidism, unspecified (principal)

== ENCOUNTER → 2019-11-22 | Outpatient (CLI) | payer MEDICARE, OTHER ==
--- NOTE | 2019-11-22 16:39 | REP ---
Chest x-ray: Two views. History: Rhonchi. Comparison chest x-ray: September 20, 2018. Findings: Right hemidiaphragm remains somewhat elevated as before. There is a loop recorder projecting in the left precordium. The aorta is tortuous. There are old healed rib fractures on the left. Today's views exposed at a somewhat lesser level of inspiration. No infiltrate is seen. No evidence of pleural effusion noted. There are degenerative changes in the thoracic spine. Impression: Lesser level of inspiration. Otherwise no active disease. Loop recorder noted. Chronic changes. Electronically Signed by Ben Erickson MD 11/22/2019 04:31 P
== END ==
LOC: M LRY 16:10
PROVIDERS: ATTEND Nurse Practitioner Family
DX: M51.34 Other intervertebral disc degeneration, thoracic region (principal); R09.89 Other specified symptoms and signs involving the circulatory and respiratory systems
CPT/HCPCS: 71046; G0463

== ENCOUNTER → 2020-03-13 | Outpatient (CLI) | payer MEDICARE, OTHER ==
[2020-03-13 12:22] LABS: FREE T4 1.01 NG/DL (0.76-1.46); THYROID STIMULATING HORMONE 0.63 uIU/ML (0.358-3.740)
== END ==
LOC: M LRY 09:15
PROVIDERS: ATTEND Nurse Practitioner Family
DX: E03.9 Hypothyroidism, unspecified (principal)

== ENCOUNTER → 2020-04-28 | Outpatient (CLI) | payer MEDICARE, OTHER ==
--- NOTE | 2020-04-28 15:15 | REP ---
REASON FOR EXAM: Followup. COMPARISON: All reviewed, the latest 10/16/2019 The mediastinum and pulmonary mahamed are unchanged. Once again, there is asymmetric thyromegaly with calcifications in the left lobe, status quo. No mediastinal or hilar adenopathy has developed. There are no pleural or pericardial effusions. There is no significant change in the appearance of the imaged upper abdomen or imaged osseous structures. Postoperative changes are again seen involving multiple left ribs status quo. Evaluation of the lung arizmendi again shows postthoracotomy changes on the left status quo. The patient has had previous left upper lobectomy. There are no new abnormal nodules, masses, or opacities. IMPRESSION: Stable CT examination of the chest. There is no evidence of acute disease. Electronically Signed by Tonio Castro DO 04/28/2020 05:28 P
== END ==
LOC: M RAD 11:16
PROVIDERS: ATTEND Internal Medicine Pulmonary Disease
DX: R91.8 Other nonspecific abnormal finding of lung field (principal); Z90.2 Acquired absence of lung [part of]

== ENCOUNTER → 2020-09-11 | Outpatient (CLI) | payer MEDICARE, OTHER ==
[2020-09-11 14:19] LABS: FREE T4 1.01 NG/DL (0.76-1.46); THYROID STIMULATING HORMONE 0.809 uIU/ML (0.358-3.740)
== END ==
LOC: M WUC 09:30
PROVIDERS: ATTEND Nurse Practitioner Family
DX: E03.9 Hypothyroidism, unspecified (principal)

== ENCOUNTER → 2021-05-06 | Outpatient (CLI) | payer MEDICARE, OTHER ==
--- NOTE | 2021-05-06 09:46 | REP ---
INDICATION: ABN FINDINGS LUNG FIELD COMPARISON: Multiple the latest 04/28/2020 TECHNIQUE: Standard helical technique without intravenous contrast administration FINDINGS: The nodule seen in the left lobe of the thyroid gland with calcifications is unchanged. No mediastinal or hilar adenopathy has developed. There are no pleural or pericardial effusions. There is no significant change in appearance of the imaged upper abdomen. Multiple bilateral low-density renal lesions, some of which are partially imaged, are again noted. There is no significant change in appearance of the imaged osseous structures. Evaluation of the lung arizmendi shows no new abnormal nodules, masses, or opacities. IMPRESSION: Stable CT examination of the chest as described above. There are no acute abnormalities. There are what are most likely bilateral renal cysts. The patient's last renal examination is 11/27/2017 in the form of and ultrasound exam which showed bilateral cysts. Consider re-evaluation to ensure stability. <Electronically signed by Tonio Castro > 05/06/21 0920
== END ==
LOC: M RAD 08:43
PROVIDERS: ATTEND Internal Medicine Pulmonary Disease
DX: R91.8 Other nonspecific abnormal finding of lung field (principal)

== ENCOUNTER → 2021-07-22 | Outpatient (CLI) | payer MEDICARE, OTHER ==
--- NOTE | 2021-07-22 09:38 | REP ---
INDICATION: PAIN COMPARISON: None TECHNIQUE: Five views FINDINGS: There is minimal medial compartmental and patellar osteophytosis. There is mild medial compartmental and patellofemoral joint space narrowing. There is no acute fracture, dislocation, or subluxation. IMPRESSION: Chronic changes as described above. <Electronically signed by Tonio Castro > 07/22/21 [id number]
== END ==
LOC: M WUC 08:58
PROVIDERS: ATTEND Physician Assistant
DX: M25.562 Pain in left knee (principal); M25.761 Osteophyte, right knee

== ENCOUNTER → 2022-05-23 | Outpatient (CLI) | payer MEDICARE, OTHER ==
[~2022-05-23] MED LIST changes: -DILT180C43 PO; +DILT180C95 PO
== END ==
LOC: M RAD 09:27
PROVIDERS: ATTEND Internal Medicine Pulmonary Disease
DX: Z85.118 Personal history of other malignant neoplasm of bronchus and lung (principal); E05.00 Thyrotoxicosis with diffuse goiter without thyrotoxic crisis or storm

== ENCOUNTER → 2022-10-14 | Outpatient (CLI) | payer MEDICARE, OTHER ==
[2022-10-14 17:59] LABS: THYROID STIMULATING HORMONE 3.079 uIU/ML (0.55-4.78)
[2022-10-14 18:02] LABS: FREE T4 1.05 NG/DL (0.89-1.76)
== END ==
LOC: M WUC 11:08
PROVIDERS: ATTEND Nurse Practitioner Family
DX: E03.9 Hypothyroidism, unspecified (principal)

== ENCOUNTER → 2023-02-13 | Outpatient (REF) | payer MEDICARE, OTHER ==
[2023-02-13 21:38] LABS: THYROID STIMULATING HORMONE 0.634 uIU/ML (0.55-4.78)
[2023-02-13 21:39] LABS: FREE T4 1.15 NG/DL (0.89-1.76)
== END ==
LOC: M LAB REF 20:51
PROVIDERS: ATTEND Nurse Practitioner Family
DX: E03.9 Hypothyroidism, unspecified (principal)

== ENCOUNTER → 2023-06-05 | Outpatient (CLI) | payer MEDICARE, OTHER ==
[~2023-06-05] MED LIST changes: +DILT120C41 PO; -DILT1CAP PO; -K-TA10TA2 PO; +POTA-165 PO
== END ==
LOC: M RAD 13:46
PROVIDERS: ATTEND Internal Medicine Pulmonary Disease
DX: J47.9 Bronchiectasis, uncomplicated (principal); I70.0 Atherosclerosis of aorta; I25.10 Atherosclerotic heart disease of native coronary artery without angina pectoris; E04.9 Nontoxic goiter, unspecified; Z85.118 Personal history of other malignant neoplasm of bronchus and lung

== ENCOUNTER → 2023-12-18 | Outpatient (REF) | payer MEDICARE, OTHER ==
[2023-12-18 18:59] LABS: BASO # 0.1 10^3/uL (0.0-0.2); BASO % 0.7 % (0.0-1.0); EOS # 0.2 10^3/uL (0.0-0.5); EOS % 2.4 % (0.0-3.0); LYMPH # 2.1 10^3/uL (1.5-5.0); LYMPH % 27.1 % (24.0-44.0); MEAN CORPUSCULAR HEMOGLOBIN 31.8 pg (27.0-33.0); MEAN CORPUSCULAR HGB CONC 32.6 g/dl (32.0-36.5); MEAN CORPUSCULAR VOLUME 97.5 fl (80.0-96.0); MONO # 0.8 10^3/uL (0.0-0.8); MONO % 10.3 % (2.0-8.0); NEUTROPHILS # 4.5 10^3/uL (1.5-8.5); NEUTROPHILS % 59.2 % (36.0-66.0); PLATELET COUNT, AUTOMATED 216 10^3/uL (150-450); RED BLOOD COUNT 4.72 10^6/uL (4.30-6.10); WHITE BLOOD COUNT 7.6 10^3/uL (4.0-10.0)
[2023-12-18 19:25] LABS: CALCIUM LEVEL 9.3 MG/DL (8.3-10.6); CREATININE FOR GFR 2.83 MG/DL (0.70-1.30); GLOMERULAR FILTRATION RATE 23.2 (>42); POTASSIUM SERUM 4.9 MMOL/L (3.5-5.1)
== END ==
LOC: M LABWUC 16:54
PROVIDERS: ATTEND Internal Medicine Clinical Cardiac Electrophysiology
DX: I48.91 Unspecified atrial fibrillation (principal)

== ENCOUNTER → 2024-01-30 | Outpatient (CLI) | payer MEDICARE, OTHER ==
[2024-01-30 13:02] LABS: BASO # 0.1 10^3/uL (0.0-0.2); BASO % 0.8 % (0.0-1.0); EOS # 0.2 10^3/uL (0.0-0.5); EOS % 2.7 % (0.0-3.0); HEMATOCRIT 48.8 % (42.0-52.0); HEMOGLOBIN 16.3 g/dl (13.5-17.5); LYMPH # 2.3 10^3/uL (1.5-5.0); LYMPH % 27.8 % (24.0-44.0); MEAN CORPUSCULAR HEMOGLOBIN 31.9 pg (27.0-33.0); MEAN CORPUSCULAR HGB CONC 33.4 g/dl (32.0-36.5); MEAN CORPUSCULAR VOLUME 95.5 fl (80.0-96.0); MONO # 0.7 10^3/uL (0.0-0.8); MONO % 8.2 % (2.0-8.0); NEUTROPHILS % 60.1 % (36.0-66.0); PLATELET COUNT, AUTOMATED 212 10^3/uL (150-450); RED BLOOD COUNT 5.11 10^6/uL (4.30-6.10); WHITE BLOOD COUNT 8.3 10^3/uL (4.0-10.0)
[2024-01-30 13:09] LABS: CREATININE FOR GFR 3.07 MG/DL (0.70-1.30); GLOMERULAR FILTRATION RATE 21.1 (>42); POTASSIUM SERUM 5.4 MMOL/L (3.5-5.1)
[2024-01-31 15:52] LABS: CALCIUM LEVEL 9.6 MG/DL (8.3-10.6)
== END ==
LOC: M WUC 10:31
PROVIDERS: ATTEND Internal Medicine Clinical Cardiac Electrophysiology
DX: I48.91 Unspecified atrial fibrillation (principal)

== ENCOUNTER → 2024-02-08 | Outpatient (CLI) | payer MEDICARE, OTHER ==
[2024-02-08 11:00] LABS: ALBUMIN 3.4 G/DL (3.2-5.2); BILIRUBIN,DIRECT 0.2 MG/DL (<0.4); BILIRUBIN,TOTAL 0.7 MG/DL (0.3-1.2); CALCIUM LEVEL 9.5 MG/DL (8.3-10.6); CREATININE FOR GFR 3.15 MG/DL (0.70-1.30); GLOMERULAR FILTRATION RATE 20.5 (>42); POTASSIUM SERUM 4.6 MMOL/L (3.5-5.1); THYROID STIMULATING HORMONE 3.852 uIU/ML (0.55-4.78); TOTAL PROTEIN 6.2 G/DL (5.7-8.2)
== END ==
LOC: M WUC 08:58
PROVIDERS: ATTEND Nurse Practitioner Family
DX: I48.91 Unspecified atrial fibrillation (principal)

== ENCOUNTER → 2024-04-04 | Outpatient (REF) | payer MEDICARE, OTHER ==
[2024-04-04 13:48] LABS: FREE T4 1.05 NG/DL (0.89-1.76); THYROID STIMULATING HORMONE 4.735 uIU/ML (0.55-4.78)
== END ==
LOC: M LABWUC 13:15
PROVIDERS: ATTEND Nurse Practitioner Family
DX: E03.9 Hypothyroidism, unspecified (principal)

== ENCOUNTER → 2024-11-22 | Outpatient (REF) | payer MEDICARE, OTHER ==
[2024-11-22 17:58] LABS: THYROID STIMULATING HORMONE 4.591 uIU/ML (0.55-4.78)
[2024-11-22 17:59] LABS: FREE T4 1.03 NG/DL (0.89-1.76)
== END ==
LOC: M LABWUC 16:20
PROVIDERS: ATTEND Nurse Practitioner Family
DX: E03.9 Hypothyroidism, unspecified (principal)

== ENCOUNTER → 2025-05-23 | Outpatient (REF) | payer MEDICARE, OTHER ==
[~2025-05-23] MED LIST changes: +AMOX875T2 PO
[2025-05-23 12:52] LABS: FREE T4 1.15 NG/DL (0.89-1.76)
== END ==
LOC: M LABWUC 11:53
PROVIDERS: ATTEND Nurse Practitioner Family
DX: E03.9 Hypothyroidism, unspecified (principal)

== ENCOUNTER → 2025-05-26 | Outpatient (CLI) | payer MEDICARE, OTHER | LOC: M RAD 12:34 | PROVIDERS: ATTEND Otolaryngology | DX: R22.1 Localized swelling, mass and lump, neck (principal) ==